=== PATIENT | female | born 1940 | race Caucasian/White ===

== ENCOUNTER → 2016-12-05 | Outpatient (CLI) | payer OTHER ==
[~2016-12-05] MED LIST: ASPIR 8181 MG PO; CALCIUM 600 +1 EAC1 PO; CARBATROL200 MG PO; HYDROCHLOROTHIA25 M2 PO; KLOR-CON 1010 MEQ PO; LIPITOR 20 MG T20 M1 PO; LIPITOR10 MG PO; NORVASC5 MG PO; OMEPRAZOLE40 MG PO; OXYBUTYNIN 5 MG5 M2 PO; SERTRALINE HCL25 M1 PO
== END ==
LOC: RAD 02:09
DX: Z12.31 Encounter for screening mammogram for malignant neoplasm of breast (principal)

== ENCOUNTER → 2017-01-06 | Outpatient (CLI) | payer OTHER | LOC: NUC 09:17 | DX: M81.0 Age-related osteoporosis without current pathological fracture (principal); Z78.0 Asymptomatic menopausal state ==

== ENCOUNTER 2017-10-06 14:06 | Emergency (ER) | payer OTHER ==
--- NOTE | ~2017-10-06 | EKG ---
[address] [place] [address] ELECTROCARDIOGRAM REPORT Name: SHAKIRA MAHONEY [facility]: [id number] Admission: 10/06/17 Attend Phys: Discharge: 10/06/17 Date of : 38 Report #: [id number] THIS REPORT FOR: //name// [facility] ED Test Date: 2017-10-06 Test Time: 14:17:12 Pat Name: SHAKIRAMINERVA MAHONEY Department: Room: Gender: F [employer]: [email or web address] : 1940 Requested By: Catrachita Hong Order Number: [id number] MD: Samy Varner Measurements Intervals [place] Rate: 60 P: 54 SC: 156 QRS: 60 QRSD: 134 T: 38 QT: 457 QTc: 457 Interpretive Statements Sinus rhythm Right bundle branch block No previous ECG available for comparison Electronically Signed On 10-07-2017 7:49:56 CDT by Samy Varner [email or web address] <ELECTRONICALLY SIGNED> By: Samy Varner MD 10/07/17 0749 1417 1417 MD CHENTE Anderson
[2017-10-06 14:51] LABS: ABSOLUTE NEUTROPHILS 4.1 thou/uL (1.4-8.2); BASOPHILS 0.8 % (0.0-2.0); EOSINOPHILS 1.7 % (0.0-3.0); HEMOGLOBIN 10.7 gm/dL (12.0-15.0); MCHC 33.5 g/dL (28.0-37.0); MCV 83.7 fL (80.0-100.0); MONOCYTES 8.5 % (1.0-8.0); PLATELET COUNT 346 thou/uL (150-400); RBC 3.83 mil/uL (4.20-5.00); RDW 13.8 % (10.5-14.5); WBC 7.1 thou/uL (4.0-11.0)
[2017-10-06 14:57] LABS: ANION GAP 7 mmol/L (7-16); BUN 16 mg/dL (7-18); CALCIUM 9.3 mg/dL (8.5-10.1); CHLORIDE 98 mmol/L (98-107); CO2 29 mmol/L (21-32); CREATININE 0.6 mg/dL (0.6-1.0); GLUCOSE 110 mg/dL (74-106); POTASSIUM 3.3 mmol/L (3.5-5.1); SODIUM 134 mmol/L (136-145)
[2017-10-06 15:05] LABS: ALBUMIN 3.3 g/dL (3.4-5.0); SGOT 17 U/L (15-37); SGPT 21 U/L (30-65); TOTAL BILIRUBIN 0.2 mg/dL (<0.1-1.0); TOTAL PROTEIN 7.2 g/dL (6.4-8.2); TROPONIN-I < 0.04 ng/mL (<0.06)
[2017-10-06] MEDS ORDERED: HYDROCODONE-AP1 EAC6 PO (15:37)
== END 2017-10-06 16:13 | disposition home or self-care (01) ==
LOC: ER 14:06
PROVIDERS: Physician Assistant
DX: R09.1 Pleurisy (principal); R07.2 Precordial pain; I10 Essential (primary) hypertension; F17.210 Nicotine dependence, cigarettes, uncomplicated

== ENCOUNTER → 2018-01-01 | Outpatient (CLI) | payer OTHER ==
[~2018-01-01] MED LIST changes: +HYDROCODONE-AP1 EAC6 PO
== END ==
LOC: RAD 02:08
DX: Z12.31 Encounter for screening mammogram for malignant neoplasm of breast (principal)

== ENCOUNTER → 2018-08-22 | Outpatient (CLI) | payer OTHER | LOC: RAD 10:57 | DX: R05 Cough (principal) ==

== ENCOUNTER → 2018-11-26 | Outpatient (CLI) | payer OTHER | LOC: NUC 11-19 10:56 | DX: M81.0 Age-related osteoporosis without current pathological fracture (principal); M85.89 Other specified disorders of bone density and structure, multiple sites ==

== ENCOUNTER → 2019-01-08 | Outpatient (CLI) | payer OTHER | LOC: RAD 16:15 | DX: Z12.31 Encounter for screening mammogram for malignant neoplasm of breast (principal) ==

== ENCOUNTER → 2019-01-18 | Outpatient (CLI) | payer OTHER | LOC: RAD 02:37 | DX: R92.8 Other abnormal and inconclusive findings on diagnostic imaging of breast (principal) ==

== ENCOUNTER → 2020-01-21 | Outpatient (CLI) | payer OTHER | LOC: BC 12:44 | PROVIDERS: ATTEND Family Medicine | DX: Z12.31 Encounter for screening mammogram for malignant neoplasm of breast (principal) ==

== ENCOUNTER → 2021-01-22 | Outpatient (CLI) | payer OTHER | LOC: BC 13:30 | PROVIDERS: ATTEND Family Medicine | DX: Z12.31 Encounter for screening mammogram for malignant neoplasm of breast (principal); Z78.0 Asymptomatic menopausal state ==

== ENCOUNTER → 2021-03-22 | Outpatient (CLI) | payer OTHER | LOC: RAD 11:17 | PROVIDERS: ATTEND Family Medicine | DX: M19.072 Primary osteoarthritis, left ankle and foot (principal); M79.672 Pain in left foot ==